=== PATIENT | female | born 1955 | race Caucasian/White ===

== ENCOUNTER 2020-12-14 14:54 | Day surgery (SDCO) | payer MEDICARE, OTHER ==
[~2020-12-14] VITALS: Ht 157.5 cm; Wt 69.6 kg
[~2020-12-14 14:54] MED LIST: ANTIVERT25 MG PO; ATARAX25 MG PO; ESTRACE1 MG PO; MOBIC7.5 MG PO; MYRBETRIQ25 MG PO; NEXIUM40 MG PO; PREMARIN0.625 MG PO; SYNTHROID88 MCG PO; WELLBUTRIN XL150 MG PO; ZOLOFT100 MG PO
[2020-12-14 15:31] LABS: BASOPHIL 0.6 % (0-2); EOSINOPHIL 1.6 % (0-7); HCT 40.4 % (37.0-47.0); LYMPHOCYTE 22.4 % (15-48); MCH 29.6 pg (25.0-31.0); MCHC 32.2 g/dL (32.0-36.0); MONOCYTE 10.7 % (0-12); MPV 10.1 fL (6.0-9.5); NEUTROPHIL 64.3 % (41-80); NRBC 0; PLT 240 K/uL (150-400); RBC 4.39 M/uL (4.20-5.40); RDW 13.4 % (11.5-14.0)
[2020-12-14 15:45] LABS: INR 1.01 (0.9-1.2); PROTHROMBIN TIME 12.7 SECONDS (11.8-13.4); PTT 27.5 SECONDS (24.4-34.7)
[2020-12-14 15:59] LABS: BILIRUBIN - TOTAL 0.4 mg/dL (0.2-1.0); BUN/CREAT RATIO (CALC) 15.3 RATIO; CREATININE 0.85 mg/dL (0.51-0.95); GLOBULIN (CALCULATION) 3.3 g/dL; POTASSIUM 4.3 mmol/L (3.5-5.1); TOTAL PROTEIN 7.3 g/dL (6.4-8.2)
[2020-12-14] MEDS ORDERED: RANEXA500 MG PO (23:18)
[2020-12-14] MEDS ORDERED: PLAVIX75 MG PO (23:19)
[2020-12-14] MEDS ORDERED: ASPIRIN EC81 MG PO (23:19)
[2020-12-14] MEDS ORDERED: PROTONIX 40MG T40 MG PO (23:20)
[2020-12-14] MEDS ORDERED: LOPRESSOR25 MG PO (23:21)
[2020-12-14] MEDS ORDERED: SYNTHROID88 MC1 PO (23:22)
[2020-12-14] MEDS ORDERED: WELLBUTRIN XL150 MG PO (23:23)
[2020-12-14] MEDS ORDERED: ESTRACE1 MG PO (23:23)
[2020-12-14] MEDS ORDERED: ZOLOFT100 MG PO (23:24)
[2020-12-14] MEDS ORDERED: CRESTOR20 MG PO (23:25)
[2020-12-14] MEDS ORDERED: MYRBETRIQ25 MG PO (23:26)
[2020-12-14] MEDS ORDERED: ISOSORBIDE MONO60 MG PO (23:27)
[2020-12-14] MEDS ORDERED: ATARAX25 MG PO (23:29)
[2020-12-14] MEDS ORDERED: NITROGLYCERIN0.4 MG SL (23:31)
[2020-12-15 07:06] LABS: BASOPHIL 0.8 % (0-2); EOSINOPHIL 2.1 % (0-7); HCT 40.1 % (37.0-47.0); HGB 12.7 g/dl (12.5-16.0); LYMPHOCYTE 28.9 % (15-48); MCH 29.3 pg (25.0-31.0); MCHC 31.7 g/dL (32.0-36.0); MCV 92.4 fL (78.0-100.0); MONOCYTE 12.2 % (0-12); MPV 10.6 fL (6.0-9.5); NEUTROPHIL 55.8 % (41-80); NRBC 0; PLT 224 K/uL (150-400); RBC 4.34 M/uL (4.20-5.40); RDW 13.6 % (11.5-14.0); WBC 4.8 K/uL (4.0-10.5)
[2020-12-15 07:25] LABS: ALBUMIN 3.6 g/dL (3.4-5.0); BILIRUBIN - TOTAL 0.3 mg/dL (0.2-1.0); BUN/CREAT RATIO (CALC) 13.2 RATIO; CREATININE 0.91 mg/dL (0.51-0.95); GLOBULIN (CALCULATION) 2.9 g/dL; TOTAL PROTEIN 6.5 g/dL (6.4-8.2)
--- NOTE | 2020-12-15 09:28 | NUR ---
0928 PATIENT REQUEST TO LEAVE AFTER SEEING ROD BRENNER THAT IT WAS OK FROM HIS STAND POINT THAT SHE MAY BE DISCAHRGED. TRIED TO EXPLAINED THAT THE HOSPITALIST HAD TO DISCHARGE HER FROM THE HOSPITAL. "REPORTS THAT SHE WAS NOT WAITING TO SEE ANYONE ELSE, ROD BRENNER SAID I CAN GO HOME AND I AM LEAVING." EXPLAINED THAT IF SHE DID NOT WANT TO WAIT SHE COULD SIGN OUT AMA AND LEAVE. REPORTS THAT SHE WOULD LEAVE AMA AND WAS NOT WAITING TO SEE THE HOSPITALLIST TO PROPERLY DISCHARGE HER. 0928 SIGNED THE AMA PAPER AND IV SITE HAS BEEN REMOVED AND SHE AND HER WALKED OUT OF THE HOSPITAL.
== END 2020-12-15 09:30 | disposition left against medical advice (07) ==
LOC: FER 14:54 → FMS 20:12
PROVIDERS: Internal Medicine; Nurse Practitioner; Physician Assistant; ADMIT Internal Medicine
DX: R07.89 Other chest pain (principal); I25.2 Old myocardial infarction; E78.5 Hyperlipidemia, unspecified; R06.02 Shortness of breath; R53.83 Other fatigue; R11.0 Nausea; Z95.5 Presence of coronary angioplasty implant and graft; I25.10 Atherosclerotic heart disease of native coronary artery without angina pectoris; I08.0 Rheumatic disorders of both mitral and aortic valves; F41.9 Anxiety disorder, unspecified; E03.9 Hypothyroidism, unspecified; K21.9 Gastro-esophageal reflux disease without esophagitis; Z79.82 Long term (current) use of aspirin; Z79.01 Long term (current) use of anticoagulants; Z20.822 Contact with and (suspected) exposure to COVID-19; I11.0 Hypertensive heart disease with heart failure; R94.31 Abnormal electrocardiogram [ECG] [EKG]
CPT/HCPCS: 36415; 71045; 80053; 80061; 82553; 84443; 84484; 85025; 85610; 85730; 93005; 94010; 94760; G0378; J1650; U0002

== ENCOUNTER 2021-01-26 12:21 | Emergency (ER) | payer MEDICARE, OTHER ==
[~2021-01-26] VITALS: Ht 157.5 cm; Wt 68.0 kg
[~2021-01-26 12:21] MED LIST changes: +ASPIRIN EC81 MG PO; +CRESTOR20 MG PO; +ISOSORBIDE MONO60 MG PO; +LOPRESSOR25 MG PO; +NITROGLYCERIN0.4 MG SL; +PLAVIX75 MG PO; +PROTONIX 40MG T40 MG PO; +RANEXA500 MG PO; +SYNTHROID88 MC1 PO
== END 2021-01-26 16:58 | disposition home or self-care (01) ==
LOC: FER 12:21
DX: J02.9 Acute pharyngitis, unspecified (principal); I11.9 Hypertensive heart disease without heart failure; I25.2 Old myocardial infarction; E78.5 Hyperlipidemia, unspecified; Z95.5 Presence of coronary angioplasty implant and graft
CPT/HCPCS: 99282